=== PATIENT | male | born 1940 | race Caucasian/White ===

== ENCOUNTER 2016-06-27 07:07 | Day surgery (SDC) | payer MEDICARE ==
[~2016-06-27] VITALS: Ht 170.2 cm; Wt 72.7 kg
[2016-06-27] VITALS (16 sets, daily range): BP systolic 90–129; BP diastolic 54–79; PULSE 56–69; RESP 14–20; TEMP 97.8–98.3; O2SAT 96–100; Ht 170.2 cm; Wt 72.7 kg
[~2016-06-27 07:07] MED LIST: LIDOCAINE 1% (10mg/ml) 2ml SDV INJ ONE; LR 1,000 ML IV SCH
[2016-06-27] MEDS ORDERED: MIDAZOLAM 5mg/5ml INJECTION ONE (09:00)
[2016-06-27] MEDS ORDERED: FENTANYL 100mcg/2ml INJECTION ONE (09:00)
[2016-06-27] MEDS ORDERED: SALINE FLUSH 10ml SYRINGE ONE (09:01)
[2016-06-27] MEDS ORDERED: MIDAZOLAM 5mg/5ml INJECTION IV PRN (09:07)
[2016-06-27] MEDS ORDERED: FENTANYL 100mcg/2ml INJECTION IV PRN (09:07)
[2016-06-27] MEDS ORDERED: MIDAZOLAM 2mg/2ml INJECTION ONE ×2 (09:17→09:28)
--- NOTE | 2016-06-27 15:56 | OPNOTEF ---
DATE OF PROCEDURE: 06/27/2016 PHYSICIAN: Dilshad Lopez DO PROCEDURE: Colonoscopy. INDICATION FOR PROCEDURE Colorectal cancer screening. ASA CLASSIFICATION: 2 DESCRIPTION OF PROCEDURE Consent was signed and on the chart. Routine monitoring with ECG, continuous oximetry and noninvasive blood pressure was performed throughout the procedure and found to be within normal limits. IV sedation was performed with a total of 7 mg of Versed and 70 mcg of fentanyl. Prior to the procedure the patient was brought to the endoscopy lab where a brief review of his medical history and physical was performed. The procedure was described to him and he was agreeable to continue. All questions were answered. He was given IV sedation and placed in the left lateral decubitus position. Digital rectal exam revealed a small prostate. No masses. The colonoscope was introduced through the anal verge and advanced to the cecum. Upon reaching the cecum careful inspection of the mucosa was performed. From the level of the cecum through most of the ascending colon there were no polyps, masses, lesions or diverticula. He did have a small polyp in the ascending colon removed, then another small polyp in the transverse colon removed by cold forceps along with a larger polyp that was photographed, biopsied and then removed with a snare. Also in the descending colon there was another small polypoid lesion that was photographed and biopsied. He did have diverticulosis of the sigmoid colon. At 10 cm he had another polyp that was removed by cold forceps. IMPRESSION Polyps at the following location removed: Ascending colon, transverse colon, descending colon and 10 cm. RECOMMENDATION Review the pathology report when available. Repeat as indicated. [facility]
== END 2016-06-27 10:50 | disposition home or self-care (01) ==
LOC: NSC 07:07
PROVIDERS: ATTEND Internal Medicine
DX: Z12.11 Encounter for screening for malignant neoplasm of colon (principal); D12.2 Benign neoplasm of ascending colon; K63.5 Polyp of colon; K57.30 Diverticulosis of large intestine without perforation or abscess without bleeding; I49.9 Cardiac arrhythmia, unspecified; Z79.82 Long term (current) use of aspirin
CPT/HCPCS: 45380; 45385; J2250; J3010; 88305